=== PATIENT | female | born 1970 | race Caucasian/White ===

== ENCOUNTER → 2017-01-21 | Day surgery (SDC) | payer BC ==
[~2017-01-21] MED LIST: ALEVE220 M1 PO; CYMBALTA30 M1 PO; PROAIR HFA8.5 GM INH; SINGULAIR PO; SKELAXIN PO; ZYRTEC10 M1 PO
--- NOTE | ~2017-01-21 | OR ---
Unit #: [id number] #: [id number] Patient: GLENNY YAO [id number] [address] [address] [id number] O MR#: [id number] NAME: GLENNY YAO ROOM: Date of Procedure: 01/21/2017 Admission Date: 01/21/2017 Surgeon: James Calixto M.D. : 1970 Attending Physician: Carter Calixto Primary Care Physician: Anna Nolen M.D. [facility] OPERATIVE NOTE PROCEDURE PERFORMED Cervical epidural steroid injection under x-ray guided needle placement. PREOPERATIVE DIAGNOSES 1. Acute cervical radiculitis. 2. Spinal stenosis, cervical spine. 3. Degenerative joint disease, cervical spine. 4. Degenerative disk disease, cervical spine. 5. Facet arthritis, cervical spine. INDICATIONS FOR PROCEDURE The patient presents today with longstanding history of chronic and intermittent cervical radicular pain secondary to her underlying degenerative processes. She presents today with a 2- to 4-month history of increasing frequency, severity, and duration of her exacerbations to the point that they are negatively impacting her activities of daily living. She has failed to respond to conservative measures, which include medications, chiropractory, and self-directed physical activity. After discussing risks and benefits of proceeding today with cervical approach epidural steroid injection and return in 2 weeks for possible repeat as well as potential referral for facet injections, the patient agreed this would be the appropriate course of action. DESCRIPTION OF PROCEDURE She was then taken to the operating room, where she was prepped and draped in a sterile manner. Standard monitors were applied. She refused all forms of sedation and cervical epidural space accessed at the C5-C6 level using loss of resistance technique and x-ray guidance. Needle placement was confirmed with injection of 2 mL of Omnipaque. Total x-ray time for this needle placement was 3 seconds. Following successful needle placement confirmation at the C5-C6 level, the patient received an injectate containing 4 mL normal saline and 80 mg of methylprednisolone. She tolerated this procedure well. She was discharged home with followup instructions, which include return as described above. Dictated by... James Calixto M.D. RYAN/denice TD: 01/21/2017 12:14 JOB #: [id number] Unit #: [id number] #: [id number] Patient: GLENNY YAO [facility] OPERATIVE NOTE Page 1 of 1 X Carter Calixto MD PROCEDURE OPERATIVE NOTE
== END | disposition home or self-care (01) ==
LOC: CCSC 01-14 11:30
DX: G89.29 Other chronic pain (principal); M50.10 Cervical disc disorder with radiculopathy, unspecified cervical region; M47.22 Other spondylosis with radiculopathy, cervical region; M48.02 Spinal stenosis, cervical region; M46.92 Unspecified inflammatory spondylopathy, cervical region; J45.909 Unspecified asthma, uncomplicated; Z79.51 Long term (current) use of inhaled steroids; Z79.899 Other long term (current) drug therapy; Z98.51 Tubal ligation status; Z98.818 Other dental procedure status; Z98.890 Other specified postprocedural states
CPT/HCPCS: J1040; J2250